=== PATIENT | male | born 1950 | race Hispanic/Latino ===

== ENCOUNTER 2017-08-02 11:32 | Emergency (ER) | payer MEDICARE, MEDICAID ==
[2017-08-02] MEDS ORDERED: Oxycodone/Acetaminophen 5/325 mg Tab PO STA (12:47)
--- NOTE | 2017-08-02 12:52 | C.PDOC ---
History Of Present Illness Patient complains of injury to right index finger happened 30 minutes ago. Patient states he was working with a vice and his finger got caught in the vice when it closed. He complains of throbbing pain to finger. Time Seen by Provider: 08/02/17 12:36 Chief Complaint (Nursing): Abnormal Skin Integrity History Per: Patient History/Exam Limitations: no limitations Onset/Duration Of Symptoms: Sudden Onset Current Symptoms Are (Timing): Still Present Location Of Injury: Right: Hand (index finger ) Quality Of Symptoms: Painful, Swollen Past Medical History Reviewed: Historical Data, Nursing Documentation, Vital Signs Vital Signs: Last Vital Signs Temp 98.4 F 08/02/17 13:22 Pulse 64 08/02/17 14:28 Resp 18 08/02/17 14:28 BP 164/89 H 08/02/17 14:28 Pulse Ox 99 08/02/17 17:54 - Medical History PMH: No Chronic Diseases Family History: States: Unknown Family Hx - Social History Hx Alcohol Use: Yes Hx Substance Use: No - Immunization History Hx Tetanus Toxoid Vaccination: No Hx Influenza Vaccination: No Hx Pneumococcal Vaccination: No Review Of Systems Except As Marked, All Systems Reviewed And Found Negative. Musculoskeletal: Positive for: Hand Pain Physical Exam - Physical Exam Appears: Non-toxic, Other (uncomfortable in pain) Skin: Warm, Dry Head: Atraumatic, Normacephalic Eye(s): bilateral: Normal Inspection, EOMI Neck: Normal ROM Chest: Symmetrical Pulses: Right Radial: Normal Neurological/Psych: Oriented x3, Normal Speech Gait: Steady Additional Physical Exam Comments: Right hand second digit with swelling and tenderness to fingertip and deformity of nail. There is avulsion of the proximal nail plate at the base with irregular 1cm laceration to lateral nail border and active bleeding. Finger has normal ROM. ED Course And Treatment O2 Sat by Pulse Oximetry: 99 Laceration - Laceration Repair right second finger Wound Length (In cm): 2 Description Of Wound: Irregular Wound Cleansed With: Betadine, Sterile Saline Anesthesia: Lidocaine 2% Wound Examination: Irrigated With Saline, No FB With Wound Exploration, No Tendon Injury With Wound Exploration Wound Closure: Suture Suture Technique And Material Used: Interrupted (polysorb 4-0 x3), Nylon (4-0 x2 ) Wound Complexity: Intermediate Medical Decision Making Medical Decision Making: Impression: crush injury to finger Plan: * percocet * xray * tetanus Progress: Xray shows comminuted tuft fracture of second digit with soft tissue swelling 1315 attempt to call hand surgeon Dr Newby and leave message [phone] attempt second call Under sterile conditions, obtain anesthesia with digital block using lidocaine 2 %. Thoroughly cleanse and irrigate wound with 1L saline under pressure. Wound closure with 3 absorbable sutures 4-[address] 2 4-0 nylon sutures at base of nail plate. Patient tolerated well. RN applied aluminum finger splint over sterile dressing. Patient given verbal and written instructions to follow up with hand specialist Dr Newby in the next few days and take antibiotics. Patient verbalized understanding. Disposition Counseled Patient/Family Regarding: Diagnosis, Need For Followup, Rx Given - Disposition Referrals: Ben Newby MD [Staff Provider] - Disposition: HOME/ ROUTINE Disposition Time: 14:17 Condition: STABLE Additional Instructions: You have a Fracture to Finger and laceration. You MUST FOLLOW UP WITH HAND SPECIALIST BEN YEE FOLLOW UP IN 2 DAYS FOR WOUND CHECK WITH DR NEWBY OR RETURN TO ER SUTURES WERE PLACED TO KEEP NAIL IN PLACE NEED REMOVAL IN 7 DAYS Please call to make an appointment Prescriptions: Cephalexin [cephalexin] 500 mg PO Q12 #14 cap oxyCODONE/Acetaminophen [Percocet 5/325 mg Tab] 1 tab PO QID PRN #14 tab PRN Reason: Pain, Severe (8-10) Instructions: Finger Fracture (ED), Nail Avulsion (ED) Forms: [facility] (Moldovan) - POA Present On Arrival: Falls Or Trauma - Clinical Impression Clinical Impression: Open fracture of tuft of distal phalanx of finger, Nail avulsion, finger
[2017-08-02] MEDS ORDERED: Oxycodone/Acetaminophen 5/325 mg Tab ONE (12:58)
[2017-08-02] MEDS ORDERED: Lidocaine 2% Inj (20ml) INFIL ONE (13:21)
[2017-08-02 13:23] VITALS: RESP 18; TEMP 98.4
[2017-08-02] MEDS ORDERED: Lidocaine 2% Inj (20ml) ONE (13:26)
[2017-08-02] MEDS ORDERED: Bacitracin 500 Units/gm Oint Foilpak UD ONE (14:14)
[2017-08-02 14:17] VITALS: O2SAT 99
[2017-08-02 14:30] VITALS: BP 164/89; PULSE 64
--- NOTE | 2017-08-02 15:37 | RAD ---
PROCEDURE: Right Index finger radiographs. HISTORY: pain s.p injury COMPARISON: None. TECHNIQUE: AP radiograph of the right hand, as well as spot oblique and lateral images of index finger were obtained. FINDINGS: RIGHT INDEX FINGER: Avulsion fracture distal tuft region. Remainder of the right hand (as seen on the AP view) grossly intact. JOINTS: Normal. SOFT TISSUES: Soft tissue swelling attests to the acuity of the fracture. OTHER FINDINGS: None. IMPRESSION: Acute fracture distal tuft. No visulaized radiopaque/visualized foreign body. Concordant results with the preliminary interpretation rendered by the emergency department physician procedure.
== END 2017-08-02 14:31 | disposition home or self-care (01) ==
LOC: C.ER 11:32
DX: S62.630B Displaced fracture of distal phalanx of right index finger, initial encounter for open fracture (principal); W23.0XXA Caught, crushed, jammed, or pinched between moving objects, initial encounter; Y92.89 Other specified places as the place of occurrence of the external cause; Z23 Encounter for immunization

== ENCOUNTER 2017-08-03 13:17 | Emergency (ER) | payer MEDICARE, MEDICAID ==
[2017-08-03 13:31] VITALS: BP 183/102; PULSE 78; TEMP 98.3; O2SAT 98
--- NOTE | 2017-08-03 14:26 | C.PDOC ---
History Of Present Illness 67 y/o male presents to the ED for request of pain medication. The patient was seen yesterday and diagnosed with open fracture of the finger. The patient was given two Rx and has been complaint but refused to take the antibiotic. The patient realizes that the pain has not lessen so he is here for the medication. The patient denies dizziness, cough, nausea, and vomiting. Time Seen by Provider: 08/03/17 13:36 Chief Complaint (Nursing): Finger,Hand,&Wrist History Per: Patient History/Exam Limitations: no limitations Onset/Duration Of Symptoms: Days Current Symptoms Are (Timing): Still Present Additional History Per: Patient Past Medical History Reviewed: Historical Data, Nursing Documentation, Vital Signs Vital Signs: Last Vital Signs Temp 98.3 F 08/03/17 13:29 Pulse 78 08/03/17 13:29 Resp 20 08/03/17 14:37 BP 183/102 H 08/03/17 13:29 Pulse Ox 98 08/03/17 17:23 Family History: States: No Known Family Hx - Social History Hx Alcohol Use: Yes Hx Substance Use: No - Immunization History Hx Tetanus Toxoid Vaccination: No Hx Influenza Vaccination: No Hx Pneumococcal Vaccination: No Review Of Systems Except As Marked, All Systems Reviewed And Found Negative. Constitutional: Negative for: Fever, Chills Cardiovascular: Negative for: Chest Pain Skin: Negative for: Rash Physical Exam - Physical Exam Appears: Non-toxic, No Acute Distress Skin: Warm, Dry Head: Atraumatic, Normacephalic Eye(s): bilateral: Normal Inspection Oral Mucosa: Moist Neck: Supple Extremity: No Tenderness, Capillary Refill (2<sec. ), Other (second digit is in a splint ) Neurological/Psych: Oriented x3, Normal Speech Gait: Steady ED Course And Treatment O2 Sat by Pulse Oximetry: 98 (RA) Progress Note: The patient was given Perocet. Upon reassessment, the patient is comfortable . The patient is rx Perocet for home and is advised to have a 1-2 day follow up with his PCP for further evaluation. Disposition Counseled Patient/Family Regarding: Diagnosis, Need For Followup, Rx Given - Disposition Referrals: Ben Newby MD [Staff Provider] - Disposition: HOME/ ROUTINE Disposition Time: 14:35 Condition: STABLE Additional Instructions: FOLLOW UP WITH HAND SURGEON INSTRUCTED USE PAIN MEDICATION NEEDED RETURN TO ER IF SYMPTOMS WORSEN Prescriptions: oxyCODONE/Acetaminophen [Percocet 5/325 mg Tab] 1 tab PO QID PRN #15 tab PRN Reason: Pain Forms: [facility] (Tajik), General Discharge Instructions Print Language: UKRAINIAN - Clinical Impression Clinical Impression: Finger pain - Scribe Statement The provider has reviewed the documentation as recorded by the Scribe Latonya Medrano
[2017-08-03] MEDS ORDERED: Oxycodone/Acetaminophen 5/325 mg Tab ONE (14:33)
[2017-08-03] MEDS: Oxycodone/Acetaminophen 5/325 mg Tab PO STA (14:36)
[2017-08-03 14:38] VITALS: RESP 20
== END 2017-08-03 14:37 | disposition home or self-care (01) ==
LOC: C.ER 13:17
DX: M79.644 Pain in right finger(s) (principal)

== ENCOUNTER 2017-08-04 13:21 | Emergency (ER) | payer MEDICARE, MEDICAID ==
[2017-08-04 13:44] VITALS: TEMP 98.5; O2SAT 97
--- NOTE | 2017-08-04 14:06 | C.PDOC ---
History Of Present Illness Patient is a 67 y/o male who presents to the ED for a follow up wound check s/p laceration repair two days ago. Patient admits to experiencing throbbing pain, but takes antibiotics and Percocet to control. Appointment was made with hand surgeon next week. Time Seen by Provider: 08/04/17 13:36 Chief Complaint (Nursing): Wound Check History Per: Patient History/Exam Limitations: no limitations Onset/Duration Of Symptoms: Laceration (repair 2 days ago) Recent travel outside of the [place]: No Past Medical History Reviewed: Historical Data, Nursing Documentation, Vital Signs Vital Signs: Last Vital Signs Temp 98.5 F 08/04/17 13:35 Pulse 75 08/04/17 14:19 Resp 18 08/04/17 14:19 BP 140/82 08/04/17 14:19 Pulse Ox 97 08/04/17 14:19 - Medical History PMH: No Chronic Diseases Surgical History: No Surg Hx Family History: States: Unknown Family Hx - Social History Hx Alcohol Use: Yes Hx Substance Use: No - Immunization History Hx Tetanus Toxoid Vaccination: Yes (2016) Hx Influenza Vaccination: (unk) Hx Pneumococcal Vaccination: (unk) Review Of Systems Musculoskeletal: Positive for: Other (right finger throbbing pain) Skin: Positive for: Other (laceration wound check) Physical Exam - Physical Exam Appears: Well, Non-toxic, No Acute Distress Skin: Warm, Dry, Other (sutures intact to right fingertip, nail in place, some maceration of skin) Head: Atraumatic, Normacephalic Eye(s): bilateral: Normal Inspection Ear(s): Bilateral: Other (hard of hearing) Neck: Normal ROM Extremity: Normal ROM Pulses: Right Radial: Normal Neurological/Psych: Oriented x3, Normal Speech, Normal Motor, Normal Sensation Gait: Steady ED Course And Treatment O2 Sat by Pulse Oximetry: 97 Medical Decision Making Medical Decision Making: Patient is here for wound check. Wound cleansed with sterile water. No signs of cellulitis. New dressing was applied. Patient given instructions on wound care and to follow up with hand surgery next week as scheduled. Disposition Counseled Patient/Family Regarding: Diagnosis, Need For Followup - Disposition Referrals: Ben Newby MD [Staff Provider] - Disposition: HOME/ ROUTINE Disposition Time: 14:15 Condition: STABLE Additional Instructions: Please Change dressing daily. Take Antibiotic and pain medicine as prescribed Follow up with hand surgeon DR NEWBY NEXT WEEK Instructions: Acute Wound Care (ED) Forms: [facility] (Congolese) - POA Present On Arrival: None - Clinical Impression Clinical Impression: Open fracture of tuft of distal phalanx of finger, Visit for wound check, Nail avulsion, finger - Scribe Statement The provider has reviewed the documentation as recorded by the Scribe Amanda Andrade All medical record entries made by the Scribe were at my direction and personally dictated by me. I have reviewed the chart and agree that the record accurately reflects my personal performance of the history, physical exam, medical decision making, and the department course for this patient. I have also personally directed, reviewed, and agree with the discharge instructions and disposition.
[2017-08-04 14:20] VITALS: BP 140/82; PULSE 75; RESP 18
== END 2017-08-04 14:20 | disposition home or self-care (01) ==
LOC: C.ER 13:21
DX: S62.639B Displaced fracture of distal phalanx of unspecified finger, initial encounter for open fracture (principal); S61.309A Unspecified open wound of unspecified finger with damage to nail, initial encounter; X58.XXXA Exposure to other specified factors, initial encounter; Z51.89 Encounter for other specified aftercare

== ENCOUNTER 2017-08-11 13:10 | Emergency (ER) | payer MEDICARE, MEDICAID ==
[2017-08-11 13:22] VITALS: BP 209/106; PULSE 80; RESP 20; TEMP 98.1; O2SAT 100
--- NOTE | 2017-08-11 13:48 | C.PDOC ---
History Of Present Illness Patient presents to ED for suture removal from right index finger. He reports he finished antibiotics and ran out of pain medicine. He has not follow up with hand specialist, because they were unable to see him. Denies any fever, discharge, bleeding, numbness. Time Seen by Provider: 08/11/17 13:24 Chief Complaint (Nursing): Suture/Staple Removal History Per: Patient History/Exam Limitations: no limitations Onset/Duration Of Symptoms: Days Ago (08/02) Past Medical History Reviewed: Historical Data, Nursing Documentation, Vital Signs Vital Signs: Last Vital Signs Temp 98.1 F 08/11/17 13:21 Pulse 80 08/11/17 13:21 Resp 20 08/11/17 13:21 BP 209/106 H 08/11/17 13:21 Pulse Ox 100 08/11/17 14:03 Surgical History: No Surg Hx Family History: States: Unknown Family Hx - Social History Hx Alcohol Use: Yes Hx Substance Use: No - Immunization History Hx Tetanus Toxoid Vaccination: No Hx Influenza Vaccination: No Hx Pneumococcal Vaccination: No Review Of Systems Except As Marked, All Systems Reviewed And Found Negative. Musculoskeletal: Positive for: Hand Pain (right index finger) Physical Exam - Physical Exam Appears: Non-toxic, No Acute Distress Skin: Warm, Dry, Other (Right second digit with 2 sutures intact to nail. Mild swelling and hematoma to fingertip. ) Head: Atraumatic, Normacephalic Eye(s): bilateral: Normal Inspection Neck: Normal ROM Chest: Symmetrical Extremity: Normal ROM Neurological/Psych: Oriented x3, Normal Speech Gait: Steady ED Course And Treatment O2 Sat by Pulse Oximetry: 100 Pulse Ox Interpretation: Normal - Other Rad finger xray X-Ray: Viewed By Me, Read By Radiologist Interpretation: Enrolled Nurse : Renate Dubois MD. Approver2 : Report Date : 08/11/2017 14:04:39. My Comment : . PROCEDURE: Right Index finger radiographs. HISTORY: s.p fx, f.u xray. COMPARISON: Right hand 2nd digit radiographs performed 08/02/17. TECHNIQUE: AP radiograph of the right hand, as well as spot oblique and lateral images of index finger were obtained. FINDINGS : RIGHT INDEX FINGER: Comminuted displaced fracture of the distal 2nd phalanx , tuft. Remainder of the right hand (as seen on the AP view) grossly intact. JOINTS: No dislocation. SOFT TISSUES: Soft tissue swelling. No evidence of radiopaque foreign body. OTHER FINDINGS: None. IMPRESSION: Re-identified comminuted displaced fracture of the distal 2nd phalanx, tuft. Associated soft tissue swelling. Medical Decision Making Medical Decision Making: Wound appears well healing, there is soft tissue swelling and hematoma to fingetip, area soft and sensation intact. Sutures removed without difficulty XRay ordered to view healing, as patient has not follow up with hand. XRay shows same tuft fracture, no displacement. RN applied finger splint Patient instructed to take analgesics as needed and follow up in clinic in one week. Instruct to keep splint on for 4 weeks. Disposition Counseled Patient/Family Regarding: Diagnosis, Need For Followup, Rx Given - Disposition Referrals: [facility] [Outside] Disposition: HOME/ ROUTINE Disposition Time: 13:52 Condition: GOOD Additional Instructions: Your sutures were removed. Finger still has to heal can take 4-6 weeks. Keep splint on finger You can follow up in the Clinic for further care, in 1-2 weeks Prescriptions: Ibuprofen [Motrin] 600 mg PO Q8 #30 tab Instructions: Finger Fracture (ED) Forms: [facility] (Israeli) - POA Present On Arrival: None - Clinical Impression Clinical Impression: Removal of suture, H/O finger fracture, Visit for wound check
--- NOTE | 2017-08-11 14:06 | RAD ---
PROCEDURE: Right Index finger radiographs. HISTORY: s.p fx, f.u xray COMPARISON: Right hand 2nd digit radiographs performed 08/02/17 TECHNIQUE: AP radiograph of the right hand, as well as spot oblique and lateral images of index finger were obtained. FINDINGS: RIGHT INDEX FINGER: Comminuted displaced fracture of the distal 2nd phalanx, tuft. Remainder of the right hand (as seen on the AP view) grossly intact. JOINTS: No dislocation. SOFT TISSUES: Soft tissue swelling. No evidence of radiopaque foreign body. OTHER FINDINGS: None. IMPRESSION: Re-identified comminuted displaced fracture of the distal 2nd phalanx, tuft. Associated soft tissue swelling.
== END 2017-08-11 14:03 | disposition home or self-care (01) ==
LOC: C.ER 13:10
DX: Z48.02 Encounter for removal of sutures (principal); S62.60 Fracture of unspecified phalanx of finger; X58.XXXD Exposure to other specified factors, subsequent encounter